=== PATIENT | female | born 1985 | race Two or more races ===

== ENCOUNTER 2020-04-25 14:34 | Outpatient (REF) | payer OTHER, SELFPAY ==
[2020-04-29 15:37] LABS: HPV mRNA E6/E7 rflx Not Detected (Not Detected)
== END 2020-04-25 14:35 | disposition home or self-care (01) ==
LOC: HO.LAB 14:34
PROVIDERS: PCP Internal Medicine; Visit Provider Advanced Practice Midwife
DX: Z01.419 Encounter for gynecological examination (general) (routine) without abnormal findings (principal); N87.0 Mild cervical dysplasia
CPT/HCPCS: 87624; 87625; 88142

== ENCOUNTER → 2020-06-10 11:25 | Outpatient (BNVA) | payer OTHER, SELFPAY | PROVIDERS: PCP Internal Medicine; Visit Provider Nurse Practitioner Family | DX: I95.1 Orthostatic hypotension (principal) | CPT/HCPCS: 99212 ==

== ENCOUNTER → 2021-03-18 12:07 | Outpatient (BNVA) | payer OTHER, SELFPAY | PROVIDERS: PCP Internal Medicine; Referring Provider Internal Medicine; Visit Provider Internal Medicine | DX: I95.0 Idiopathic hypotension (principal) | CPT/HCPCS: 93005; 99212 ==

== ENCOUNTER → 2021-04-29 13:29 | Outpatient (BNVA) | payer OTHER, SELFPAY | PROVIDERS: PCP Internal Medicine; Visit Provider Obstetrics & Gynecology | DX: N87.0 Mild cervical dysplasia (principal) ==

== ENCOUNTER 2021-08-25 10:34 | Emergency (ER) | payer OTHER, SELFPAY ==
[2021-08-25 11:56] VITALS: BP 123/76; PULSE 87; RESP 18; TEMP 36.7; O2SAT 100; BMI 29.2
[2021-08-25 12:57] LABS: MANUAL DIFF FLAG NO
[2021-08-25 12:59] LABS: Basophils Percent Auto 0.2 % (0-2); Eosinophils Percent Auto 0.4 % (0-4); Hematocrit 37.9 % (37.0-47.0); Hemoglobin 12.9 g/dl (12.0-16.0); Imm Gran Abs Auto 0.04 X10*3/uL (0.00-0.03); Imm Gran Pct Auto 0.8 % (0.0-0.4); Lymphocytes Absolute Auto 1.8 X10*3/uL (1.2-4.9); Lymphocytes Percent Auto 36.8 % (20-40); Mean Corpuscular Hemoglobin 29.6 pg (27.0-33.0); Mean Corpuscular Volume 86.9 fL (80.0-98.0); Mean Platelet Volume 8.4 fL (9.4-12.3); Monocytes Absolute Auto 0.6 X10*3/uL (0.1-1.2); Monocytes Percent Auto 12.1 % (2-11); Neutrophils Absolute Auto 2.4 x10*3/uL (2.0-8.3); Neutrophils Percent Auto 49.7 % (45-73); Platelet Count 256 X10*3/uL (160-400); Red Blood Count 4.36 X10*6/uL (4.20-5.50); Red Cell Distribution Width 12.1 % (11.0-16.0); White Blood Count 4.8 X10*3/uL (4.8-10.8)
[2021-08-25 13:17] LABS: Alanine Aminotransferase 16 U/L (0-31); Alkaline Phosphatase 53 U/L (39-117); Anion Gap 11 (12-20); Aspartate Amino Transferase 17 U/L (5-31); Bilirubin Total 0.4 mg/dL (0.0-1.0); Blood Urea Nitrogen 7 mg/dL (9-16); Carbon Dioxide 26 mmol/L (22-29); Chloride 103 mmol/L (96-108); Creatinine Clr Calc Pharmacy 111.2; Estimated Glomerular Filt Rate > 60; Glucose Random 97 mg/dL (60-115); Lipase 19 U/L (8-78); Potassium 3.4 mmol/L (3.3-5.1); Sodium 137 mmol/L (135-145); Total Protein 6.9 g/dL (6.5-8.0)
--- NOTE | 2021-08-25 14:27 | ED.NAVMDI ---
HPI - Nausea/Vomiting/Diarrhea General Chief complaint: Abdominal Pain Stated complaint: Abd pain/Diarrhea Time Seen by Provider: 08/25/21 14:27 Source: patient Mode of arrival: ambulatory Limitations: no limitations History of Present Illness HPI Narrative: Diarrhea for 3 days, followed by vomiting, started peptol bismuth on Wednesday now with black bowel movements. patient with some abdominal pain MD elicited complaint: nausea, vomiting and diarrhea Onset (ago): day(s) Description of vomiting: watery Description of diarrhea: watery and black tarry Associated nausea: Yes Associated abdominal pain: Yes Radiation: diffuse Quality: cramping Associated symptoms: fever/chills, nausea/vomiting and bloating Related Data Home Medications Medication Instructions Recorded Confirmed omeprazole 20 mg capsule,delayed 20 mg PO DAILY 04/25/20 03/18/21 release midodrine 2.5 mg tablet 2.5 mg PO .prn tab 03/18/21 Previous Rx's Medication Instructions Recorded meclizine 25 mg tablet 25 mg PO DAILY 90 Days #90 tab 07/25/20 sumatriptan succinate 25 mg tablet 25 mg PO DAILY PRN 30 Days #9 tab 10/09/20 cholecalciferol (vitamin D3) 50 50 mcg PO DAILY #30 cap 12/15/20 mcg (2,000 unit) capsule ondansetron 4 mg disintegrating 4 mg PO Q8H 4 Days #12 tab 08/25/21 tablet Allergies Allergy/AdvReac Type Severity Reaction Status Date / Time No Known Allergies Allergy Verified 08/25/21 12:01 Review of Systems Constitutional: Constitutional: Reports no additional constitutional complaints Eyes: Eyes: Reports no additional eye complaints ENT: Denies dizziness Cardiovascular: Cardiovascular: Reports no additional cardiovascular complaints Respiratory: Respiratory: Reports as per HPI Gastrointestinal: Gastrointestinal: Reports nausea Genitourinary: Genitourinary: Reports no additional female genitourinary complaints Musculoskeletal: Musculoskeletal: Reports no additional musculoskeletal complaints Integumentary/Breasts: Skin/Breast: Denies rash Neurologic: Reports system reviewed and no additional complaints, except as documented, Denies dizziness and Denies Sensory deficit (Neuro) Psychiatric: Psychiatric: Denies anxiety PMFSH Past Medical History Medical History Dizziness GERD (gastroesophageal reflux disease) Hypovitaminosis D Orthostatic hypotension Surgical History Hx of tubal ligation Family History Family History Mother Depression Diabetes mellitus HTN (hypertension) Asthma Anxiety FH: mental illness Social History Social History Alcohol intake: never Patient Tobacco Use Status: Never used Tobacco Advance Directives: No Advance Directives Information Provided: No Patient : No Gender identity: Female Physical Exam Vital Signs: Vital Signs: Last Vital Signs Temp 98.1 F 08/25/21 11:56 Pulse 87 08/25/21 11:56 Resp 18 08/25/21 11:56 BP 123/76 08/25/21 11:56 Pulse Ox 100 08/25/21 11:56 BMI result Body Mass Index 29.2 Const: General: healthy appearing Nutritional Appearance: average body habitus Orientation/consciousness: oriented to person and patient oriented x3 Limitations: no limitations HEENT: Head: Yes normal to inspection Ears: external ears normal General nose exam: Normal external nose present Mouth: Normal oral and palatal mucosa present and oropharynx normal Throat: Yes posterior oropharynx normal Eyes: General: appearance normal, both eyes and all related structures Neck: Other: supple Neck: Yes normal visual inspection Chest: Chest palpation & inspection: normal inspection of the chest Resp: Auscultation: clear to auscultation bilaterally Cardio: Jugular venous distension: no JVD Rate: regular rate Rhythm: regular rhythm Heart sounds: S1 normal heart sound present and S2 normal heart sound present GI: Inspection: Yes normal to inspection Palpation (GI): Soft to palpation, nontender and No hepatosplenomegaly present Auscultation: normal bowel sounds : General: Yes no CVA tenderness Back/Spine/Pelvis: Back: no CVA tenderness Skin: General skin exam: no rashes or lesions noted Neuro: General: oriented to person and patient oriented x3 Cranial nerves: Yes CN's II-XII intact bilaterally Motor exam (neuro): 5/5 motor strength present throughout Sensory Exam: No Sensory deficit (Neuro) Extrem: General: Yes normal to inspection Psych: Appearance: grossly normal Course Reevaluation(s) Reevaluation #1: patient with likely viral gastroenteritis will start zofran for nausea. Will place patient patient on fluids only and then advance to BRAT diet Time: 14:36 MDM - Nausea/Vomiting/Diarrhea Lab Data Result diagrams: 08/25/21 12:53 08/25/21 12:53 Labs: Lab Results 08/25/21 08/25/21 Range/Units 12:53 12:53 WBC 4.8 (4.8-10.8) X10*3/uL RBC 4.36 (4.20-5.50) X10*6/uL Hgb 12.9 (12.0-16.0) g/dl Hct 37.9 (37.0-47.0) % MCV 86.9 (80.0-98.0) fL MCH 29.6 (27.0-33.0) pg MCHC 34.0 (31.0-35.0) g/dl RDW 12.1 (11.0-16.0) % Plt Count 256 (160-400) X10*3/uL MPV 8.4 L (9.4-12.3) fL Immature Gran % (Auto) 0.8 H (0.0-0.4) % Neut % (Auto) 49.7 (45-73) % Lymph % (Auto) 36.8 (20-40) % [place] % (Auto) 12.1 H (2-11) % Eos % (Auto) 0.4 (0-4) % Baso % (Auto) 0.2 (0-2) % Lymph # (Auto) 1.8 (1.2-4.9) X10*3/uL [place] # (Auto) 0.6 (0.1-1.2) X10*3/uL Eos # (Auto) 0.0 (0.0-0.4) X10*3/uL Baso # (Auto) 0.0 (0.0-0.2) X10*3/uL Abs Immat Gran (auto) 0.04 H (0.00-0.03) X10*3/uL Absolute Neuts (auto) 2.4 (2.0-8.3) x10*3/uL Absolute Nucleated RBC 0.000 (0.0-0.012) X10*3/uL Nucleated RBC % (auto) 0.0 (0.0-0.2) /100WBC Sodium 137 (135-145) mmol/L Potassium 3.4 (3.3-5.1) mmol/L Chloride 103 (96-108) mmol/L Carbon Dioxide 26 (22-29) mmol/L Anion Gap 11 L (12-20) BUN 7 L (9-16) mg/dL Creatinine 0.73 (0.5-1.4) mg/dL Estim Creat Clear Calc 111.2 Estimated GFR > 60 Random Glucose 97 (60-115) mg/dL Calcium 9.0 (8.4-10.2) mg/dL Total Bilirubin 0.4 (0.0-1.0) mg/dL AST 17 (5-31) U/L ALT 16 (0-31) U/L Alkaline Phosphatase 53 (39-117) U/L Total Protein 6.9 (6.5-8.0) g/dL Albumin 4.0 (3.5-5.0) g/dL Lipase 19 (8-78) U/L Discharge Plan Discharge Clinical Impression: Gastroenteritis Patient Disposition: Home, Self-Care Instructions: Acute Nausea and Vomiting (ED), Acute Diarrhea (ED) Prescriptions: New ondansetron 4 mg tablet,disintegrating 4 mg PO Q8H 4 Days Qty: 12 0RF No Action meclizine 25 mg tablet 25 mg PO DAILY 90 Days Qty: 90 1RF sumatriptan succinate 25 mg tablet 25 mg PO DAILY PRN (Reason: migraine headache) 30 Days Qty: 9 3RF cholecalciferol (vitamin D3) 50 mcg (2,000 unit) capsule 50 mcg PO DAILY Qty: 30 11RF omeprazole 20 mg capsule,delayed release(DR/EC) 20 mg PO DAILY 0RF midodrine 2.5 mg tablet 2.5 mg PO .prn 0RF Referrals: Po,Addie Nova MD [Primary Care Provider] - 1 week
[2021-08-25] MEDS: Ondansetron ODT 4 MG TAB.RAPDIS TRANSLINGU (14:45)
== END 2021-08-25 14:48 | disposition home or self-care (01) ==
PROVIDERS: Emergency Provider Emergency Medicine; PCP Internal Medicine
DX: K52.9 Noninfective gastroenteritis and colitis, unspecified (principal); R11.2 Nausea with vomiting, unspecified
CPT/HCPCS: 36415; 80053; 83690; 85025; 99283

== ENCOUNTER 2021-12-09 07:02 | Emergency (ER) | payer OTHER, SELFPAY ==
--- NOTE | ~2021-12-09 | CT_ITS ---
EXAMINATION: CT ABDOMEN AND PELVIS WITHOUT CONTRAST CLINICAL INFORMATION: Left flank pain. Dysuria. COMPARISON: Abdomen ultrasound from 04/18/2019. TECHNIQUE: Multidetector volumetric imaging was performed from the superior aspect of the liver through the pubic symphysis. Sagittal and coronal reformatted images were obtained on the technologist's workstation. This CT examination was performed using dose optimization techniques as appropriate, variously including the following: *Automated exposure control *Adjustment of mA and/or kV according to patient size (this includes techniques or standardized protocols for targeted exams where dose is matched to indication/reason for exam; i.e. extremities or head) *Use of iterative reconstruction technique DLP: 639 mGy-cm FINDINGS: LUNG BASES: Normal. No pulmonary consolidation or pleural effusion at either lung base. LIVER: The liver has normal size, shape, and attenuation. No evidence of liver mass. GALLBLADDER AND BILIARY TREE: Gallbladder is without radiopaque stones, wall thickening or pericholecystic fluid. No dilated bile ducts. PANCREAS: Normal. No edema, pancreatic ductal dilatation or mass. SPLEEN: Normal. ADRENAL GLANDS: Normal. KIDNEYS AND URETERS: The kidneys have normal size and cortical thickness. No perinephric fluid collection. No urolithiasis or hydroureteronephrosis. Several phleboliths are observed within the lower pelvis. There are no distal ureteral stones. BLADDER: Normal. No calculi or wall thickening. BOWEL AND PERITONEUM: Stomach is unremarkable. No dilated loops of bowel. The appendix is normal. No overt bowel wall thickening or mesenteric fat stranding. No ascites or pneumoperitoneum. ABDOMINAL WALL: Unremarkable. VASCULATURE: Unremarkable. LYMPH NODES: No pathologic sized lymph nodes in the abdomen or pelvis. No inguinal lymphadenopathy. PELVIC VISCERA: The uterus is retroflexed. No evidence of uterine or adnexal mass. SKELETAL: The visualized lower thoracic and lumbar vertebra have normal height and alignment. No suspicious bone lesions. CT/CT abdomen pelvis wo con IMPRESSION: No acute imaging abnormalities in the abdomen or pelvis. No specific source of pain is identified. No evidence of renal calculi, hydronephrosis or perinephric edema.
[2021-12-09 07:17] VITALS: BP 123/78; PULSE 82; RESP 18; TEMP 36.6; O2SAT 98; BMI 30.5
[2021-12-09 07:34] LABS: Appearance Urine CLOUDY; Color Urine YELLOW; Glucose Urine UA NEG (NEG); Leukocyte Esterase Urine 3+ (NEG); Nitrite Urine NEG (NEG); PH 5.5 (5.0-8.0); Specific Gravity - Urine 1.025 (1.005-1.025); UACC Culture Trigger YES; Urine Blood 2+ (NEG); Urine Ketones NEG (NEG); Urine Protein 1+ MG/DL (NEG-TRACE)
[2021-12-09 07:36] LABS: UPreg QC Valid YES; Urine Pregnancy NEGATIVE (NEGATIVE)
[2021-12-09 07:44] LABS: Bacteria Urine 1+ /LPF; Squamous Epithelial Cell Urine TRACE /LPF; WBC Urine TNTC /HPF (0-4)
--- NOTE | 2021-12-09 09:28 | ED.ABDPAIN ---
HPI - Abdominal Pain General Chief Complaint: Back Pain/Injury Stated Complaint: lower back pain Time Seen by Provider: 12/09/21 09:11 Source: patient Mode of arrival: ambulatory Limitations: language barrier ( Norwegian-speaking) History of Present Illness HPI narrative: 36-year-old female with no significant past medical history presenting to the ED with complaints of 10 days of left flank pain radiating to suprapubic area that has been constant with associated dysuria / urinary frequency / urgency. Reports she has been taking [id number] medication no symptomatic relief. She also reports that she bought [id number]-[id number] penicillin antibiotics from a store also no symptomatic relief. She denies any fevers, chills, dizziness, headaches, neck pain/ stiffness, trouble swallowing or breathing, chest pain or shortness of breath, nausea vomiting, constipation or diarrhea, abnormal vaginal discharge, thoughts of STDs, hematuria, rashes or lesions, or any other symptoms complaints or concerns at this time. MD elicited complaint: abdominal pain and flank pain Pertinent past history: none Onset (ago): day(s) (10) Pain Consistency: constant Location: L flank and suprapubic Severity: moderate Quality: aching Radiation: suprapubic Exacerbating factors: nothing Relieving factors: other ( Urination) Associated symptoms: dysuria Treatments prior to arrival: other ( see above) Related Data Home Medications Medication Instructions Recorded Confirmed omeprazole 20 mg capsule,delayed 20 mg PO DAILY 04/25/20 03/18/21 release midodrine 2.5 mg tablet 2.5 mg PO .prn 03/18/21 Previous Rx's Medication Instructions Recorded meclizine 25 mg tablet 25 mg PO DAILY 90 days #90 tabs 07/25/20 sumatriptan succinate 25 mg tablet 25 mg PO DAILY PRN migraine 10/09/20 headache 30 days #9 tabs cholecalciferol (vitamin D3) 50 50 mcg PO DAILY #30 caps 12/15/20 mcg (2,000 unit) capsule ondansetron 4 mg disintegrating 4 mg PO Q8H 4 days #12 tabs 08/25/21 tablet ciprofloxacin HCl 500 mg tablet 500 mg PO BID pyelonephritis 7 12/09/21 (Cipro) days #14 tabs ketorolac 10 mg tablet 10 mg PO Q8H PRN pain #14 tabs 07/19/22 phenazopyridine 100 mg tablet 100 mg PO TID PRN pain 6 doses #6 12/09/21 (Pyridium) tabs Allergies Allergy/AdvReac Type Severity Reaction Status Date / Time No Known Allergies Allergy Verified 08/25/21 12:01 Review of Systems Review of Systems Constitutional : No Weight loss, No Fever, No Chills, No Night Sweats, No Fatigue, No Malaise ENT/Mouth : No Hearing loss, No Ear Pain, No Nasal Congestion, No Sinus Pain, No Hoarseness, No sore throat, No Rhinorrhea, No Swallowing Difficulty Eyes: No Eye Pain, No Swelling, No Redness, No Foreign Body, No Discharge, No Vision Changes Cardiovascular : No Chest Pain, No SOB, No Dyspnea on Exertion, No Orthopnea, No Edema, No Palpitations Respiratory : No Cough, No Sputum, No Wheezing, No Smoke Exposure, No Dyspnea Gastrointestinal : No Nausea, No Vomiting, No Diarrhea, No Constipation, + abdominal Pain, No Hematochezia, No Melena Genitourinary : no irregular bleeding, + Dysuria, + Urinary Frequency, No Hematuria, No Urinary Incontinence, + Urgency, + Flank Pain, No Urinary Flow Changes, No Hesitancy Musculoskeletal : No joint pain, No Myalgias, No Joint Swelling Skin : No Skin Lesions, No rash Neuro : No Weakness, No Numbness, No Paresthesias, No Loss of Consciousness, No Dizziness, No Headache Psych : No Anxiety/Panic, No Depression, No SI/HI/AH/VH, No Social Issues, Heme/Lymph: No Bruising, No Bleeding,No Lymphadenopathy Endocrine : No Polyuria, No Polydipsia, No Temperature Intolerance Yes all other systems are reviewed and are negative [facility] Past Medical History Attestation statement: The following information was validated with the patient. Source: old records reviewed and nursing notes reviewed Medical History Dizziness GERD (gastroesophageal reflux disease) Hypovitaminosis D Orthostatic hypotension Surgical History Hx of tubal ligation Family History Family History Mother Depression Diabetes mellitus HTN (hypertension) Asthma Anxiety FH: mental illness Social History Social History Alcohol intake: never Patient Tobacco Use Status: Never used Tobacco Advance Directives: No Advance Directives Information Provided: Yes Gender identity: Female Physical Exam ED Vital Signs: Vital Signs - 24 hr 12/09/21 07:17 Temperature 97.8 F Pulse Rate 82 Respiratory Rate 18 Blood Pressure 123/78 Pulse Oximetry 98 Oxygen Delivery Method Room Air BMI result Body Mass Index 30.5 vital signs have been reviewed as normal and appeared to be correct. Blood pressure normal. Heart rate normal. Respiration rate normal. Temperature normal. Oxygen saturation normal. Appearance: Alert. Oriented X3. No acute distress. Head: Normal external exam. Normocephalic. Atraumatic. Eyes: PERRLA. EOMI. Conjunctiva and sclera normal. Eyelids normal. ENT: Pharynx normal. Uvula midline. Moist mucous membranes. No lesions/ulcerations or masses noted on the tongue. Normal voice. No trismus noted. No drooling noted. No muffled voice noted. Neck: Normal inspection. Neck supple. FROM. No adenopathy. Thyroid Normal. No meningeal signs. CVS: Normal heart rate and rhythm. Heart sound normal. Pulses normal throughout. No murmurs/rales/gallops. Respiratory: No respiratory distress. Painless inspiration. Breath sounds normal. No wheezes/rales/rhonchi noted. Chest nontender. No crepitus is noted. No accessory muscle usage noted or decreased air movement noted. No signs of trauma. Abdomen: Soft and nontender. Bowel sounds normal in all 4 quadrants. No distention noted. No organomegaly noted. No visible injury noted. Back: + Left CVA tenderness. No R CVAT noted. Full range of motion noted. Nontender. No signs of trauma. Patient neuro intact bilaterally and distally on all 4 extremities. Patient's reflexes intact bilaterally and distally on all 4 extremities. No rashes/lesion/induration/fluctuance or signs of infection noted. Skin: Skin warm and dry. Normal skin color. Normal skin turgor. No rashes/lesions/lacerations noted. Extremities: Extremities exhibit normal range of motion and nontender. Neuro: Oriented X 3. No motor deficit. No sensory deficit. Reflexes normal. Normal steady gait. No focal neuro deficits noted. CN's II-XII intact bilaterally? Vascular: + radial pulses/+ 2 distal pedal pulses/+2 dorsalis pedis b/l. Normal cap refill. No cyanosis noted to upper extremity nails and lower extremity toes nails. Course Course Course Narrative: 9:15am - 36-year-old female with no significant past medical history presenting to the ED with complaints of 10 days of left flank pain radiating to suprapubic area that has been constant with associated dysuria / urinary frequency / urgency. Reports she has been taking etuw-ocp-nydiony medication no symptomatic relief. She also reports that she bought cmwi-bgi-gmibcmy penicillin antibiotics from a store also no symptomatic relief. patient had a urine while she was in the waiting room which revealed +1 protein. Plus two blood. +Leukocytes negative for . Negative nitrates. Although this is consistent with UTI. Plan: Due to patient having CVA tenderness and suprapubic abdominal pain will obtain a CT scan abdomen pelvis with IV contrast to evaluate for possible kidney stone versus pyelo, obtain basic labs and provide IM Toradol and re-evaluate. Reevaluation(s) Reevaluation #1: - Labs return patient with an elevated white blood cell count [id number]. Otherwise all other labs are within normal limits. Patient negative for . UA positive for UTI negative for nitrates. CT scan abdomen pelvis without IV contrast negative for any acute processes. Patient most likely pyelonephritis will DC home with antibiotics and symptomatic treatment instructions return if any new or worsening symptoms follow up with primary care provider. Patient understands agrees with this plan. Time: 10:52 MDM - Abdominal Pain Medical Records Attestation: I reviewed the patient's medical records. Lab Data Attestation: I reviewed the patient's lab results. Result diagrams: 12/09/21 09:41 12/09/21 09:41 Labs: Lab Results 12/09/21 12/09/21 12/09/21 Range/Units 07:24 07:24 09:41 WBC 11.7 H (4.8-10.8) X10*3/uL RBC 4.72 (4.20-5.50) X10*6/uL Hgb 13.8 (12.0-16.0) g/dl Hct 41.5 (37.0-47.0) % MCV 87.9 (80.0-98.0) fL MCH 29.2 (27.0-33.0) pg MCHC 33.3 (31.0-35.0) g/dl RDW 13.1 (11.0-16.0) % Plt Count 363 D (160-400) X10*3/uL MPV 8.4 L (9.4-12.3) fL Immature Gran % (Auto) 1.5 H (0.0-0.4) % Neut % (Auto) 71.5 (45-73) % Lymph % (Auto) 20.5 (20-40) % [place] % (Auto) 5.6 (2-11) % Eos % (Auto) 0.6 (0-4) % Baso % (Auto) 0.3 (0-2) % Lymph # (Auto) 2.4 (1.2-4.9) X10*3/uL [place] # (Auto) 0.7 (0.1-1.2) X10*3/uL Eos # (Auto) 0.1 (0.0-0.4) X10*3/uL Baso # (Auto) 0.0 (0.0-0.2) X10*3/uL Abs Immat Gran (auto) 0.17 H (0.00-0.03) X10*3/uL Absolute Neuts (auto) 8.4 H (2.0-8.3) x10*3/uL Absolute Nucleated RBC 0.000 (0.0-0.012) X10*3/uL Nucleated RBC % (auto) 0.0 (0.0-0.2) /100WBC Sodium (135-145) mmol/L Potassium (3.3-5.1) mmol/L Chloride (96-108) mmol/L Carbon Dioxide (22-29) mmol/L Anion Gap (12-20) BUN (9-16) mg/dL Creatinine (0.5-1.4) mg/dL Estim Creat Clear Calc Estimated GFR Random Glucose (60-115) mg/dL Calcium (8.4-10.2) mg/dL Magnesium (1.6-2.6) mg/dL Total Bilirubin (0.0-1.0) mg/dL AST (5-31) U/L ALT (0-31) U/L Alkaline Phosphatase (39-117) U/L Total Protein (6.5-8.0) g/dL Albumin (3.5-5.0) g/dL Urine Color YELLOW Urine Appearance CLOUDY Urine pH 5.5 (5.0-8.0) Ur Specific [place] 1.025 (1.005-1.025) Urine Protein 1+ H (NEG-TRACE) MG/DL Urine Glucose (UA) NEG (NEG) MG/DL Urine Ketones NEG (NEG) MG/DL Urine Blood 2+ H (NEG) Urine Nitrite NEG (NEG) Ur Leukocyte Esterase 3+ H (NEG) Urine RBC 5-9 H (0) /HPF Urine WBC TNTC H (0-4) /HPF Ur Squamous Epith Cells TRACE /LPF Urine Bacteria 1+ /LPF Urine Test NEGATIVE (NEGATIVE) 12/09/21 Range/Units 09:41 WBC (4.8-10.8) X10*3/uL RBC (4.20-5.50) X10*6/uL Hgb (12.0-16.0) g/dl Hct (37.0-47.0) % MCV (80.0-98.0) fL MCH (27.0-33.0) pg MCHC (31.0-35.0) g/dl RDW (11.0-16.0) % Plt Count (160-400) X10*3/uL MPV (9.4-12.3) fL Immature Gran % (Auto) (0.0-0.4) % Neut % (Auto) (45-73) % Lymph % (Auto) (20-40) % [place] % (Auto) (2-11) % Eos % (Auto) (0-4) % Baso % (Auto) (0-2) % Lymph # (Auto) (1.2-4.9) X10*3/uL [place] # (Auto) (0.1-1.2) X10*3/uL Eos # (Auto) (0.0-0.4) X10*3/uL Baso # (Auto) (0.0-0.2) X10*3/uL Abs Immat Gran (auto) (0.00-0.03) X10*3/uL Absolute Neuts (auto) (2.0-8.3) x10*3/uL Absolute Nucleated RBC (0.0-0.012) X10*3/uL Nucleated RBC % (auto) (0.0-0.2) /100WBC Sodium 136 (135-145) mmol/L Potassium 4.3 D (3.3-5.1) mmol/L Chloride 104 (96-108) mmol/L Carbon Dioxide 26 (22-29) mmol/L Anion Gap 10 L (12-20) BUN 12 D (9-16) mg/dL Creatinine 0.90 (0.5-1.4) mg/dL Estim Creat Clear Calc 88.8 Estimated GFR > 60 Random Glucose 87 (60-115) mg/dL Calcium 9.3 (8.4-10.2) mg/dL Magnesium 2.1 (1.6-2.6) mg/dL Total Bilirubin 0.3 (0.0-1.0) mg/dL AST 16 (5-31) U/L ALT 19 (0-31) U/L Alkaline Phosphatase 57 (39-117) U/L Total Protein 7.5 (6.5-8.0) g/dL Albumin 4.3 (3.5-5.0) g/dL Urine Color Urine Appearance Urine pH (5.0-8.0) Ur Specific [place] (1.005-1.025) Urine Protein (NEG-TRACE) MG/DL Urine Glucose (UA) (NEG) MG/DL Urine Ketones (NEG) MG/DL Urine Blood (NEG) Urine Nitrite (NEG) Ur Leukocyte Esterase (NEG) Urine RBC (0) /HPF Urine WBC (0-4) /HPF Ur Squamous Epith Cells /LPF Urine Bacteria /LPF Urine Test (NEGATIVE) Imaging Data CT scan abdomen pelvis without IV contrast due to shortage of contrast: Attestation: I personally reviewed and interpreted this imaging study as follows: Radiologist's impression: FINDINGS: LUNG BASES: Normal. No pulmonary consolidation or pleural effusion at either lung base.? LIVER: The liver has normal size, shape, and attenuation.? No evidence of liver mass. GALLBLADDER AND BILIARY TREE: Gallbladder is without radiopaque stones, wall thickening or pericholecystic fluid.? No dilated bile ducts. PANCREAS: Normal. No edema, pancreatic ductal dilatation or mass.? SPLEEN: Normal.? ADRENAL GLANDS: Normal.? KIDNEYS AND URETERS: The kidneys have normal size and cortical thickness. No perinephric fluid collection. No urolithiasis or hydroureteronephrosis. Several phleboliths are observed within the lower pelvis. There are no distal ureteral stones. BLADDER:? Normal. No calculi or wall thickening. BOWEL AND PERITONEUM: Stomach is unremarkable. No dilated loops of bowel. The appendix is normal. No overt bowel wall thickening or mesenteric fat stranding. No ascites or pneumoperitoneum. ABDOMINAL WALL: Unremarkable.? VASCULATURE: Unremarkable. LYMPH NODES: No pathologic sized lymph nodes in the abdomen or pelvis. No inguinal lymphadenopathy. PELVIC VISCERA: The uterus is retroflexed. No evidence of uterine or adnexal mass. SKELETAL: The visualized lower thoracic and lumbar vertebra have normal height and alignment. No suspicious bone lesions.? CT/CT abdomen pelvis wo con IMPRESSION: No acute imaging abnormalities in the abdomen or pelvis. No specific source of pain is identified. No evidence of renal calculi, hydronephrosis or perinephric edema. ? Discharge Plan Discharge Clinical Impression: Pyelonephritis Patient Disposition: Home, Self-Care Instructions: Kidney Infection (ED) Prescriptions: New ketorolac 10 mg tablet 10 mg PO Q8H PRN (Reason: pain) Qty: 14 0RF Rx Instructions: 1st dose given in the ED by IM patient tolerated well ciprofloxacin HCl [Cipro] 500 mg tablet 500 mg PO BID 7 Days Qty: 14 0RF phenazopyridine [Pyridium] 100 mg tablet 100 mg PO TID PRN (Reason: pain) Qty: 6 0RF No Action meclizine 25 mg tablet 25 mg PO DAILY 90 Days Qty: 90 1RF sumatriptan succinate 25 mg tablet 25 mg PO DAILY PRN (Reason: migraine headache) 30 Days Qty: 9 3RF cholecalciferol (vitamin D3) 50 mcg (2,000 unit) capsule 50 mcg PO DAILY Qty: 30 11RF ondansetron 4 mg tablet,disintegrating 4 mg PO Q8H 4 Days Qty: 12 0RF omeprazole 20 mg capsule,delayed release(DR/EC) 20 mg PO DAILY midodrine 2.5 mg tablet 2.5 mg PO .prn Referrals: Madisyn Carson MD [Primary Care Provider] - 2 days Stand Alone Forms: Work/School Release Print Language: Norwegian
[2021-12-09] MEDS: Ketorolac Tromethamine 60 MG/2 ML VIAL IM (09:36)
[2021-12-09 09:44] LABS: MANUAL DIFF FLAG NO
[2021-12-09 09:52] LABS: Basophils Percent Auto 0.3 % (0-2); Eosinophils Absolute Auto 0.1 X10*3/uL (0.0-0.4); Eosinophils Percent Auto 0.6 % (0-4); Hematocrit 41.5 % (37.0-47.0); Hemoglobin 13.8 g/dl (12.0-16.0); Imm Gran Abs Auto 0.17 X10*3/uL (0.00-0.03); Imm Gran Pct Auto 1.5 % (0.0-0.4); Lymphocytes Absolute Auto 2.4 X10*3/uL (1.2-4.9); Lymphocytes Percent Auto 20.5 % (20-40); Mean Corpuscular HGB Conc 33.3 g/dl (31.0-35.0); Mean Corpuscular Hemoglobin 29.2 pg (27.0-33.0); Mean Corpuscular Volume 87.9 fL (80.0-98.0); Mean Platelet Volume 8.4 fL (9.4-12.3); Monocytes Absolute Auto 0.7 X10*3/uL (0.1-1.2); Monocytes Percent Auto 5.6 % (2-11); Neutrophils Absolute Auto 8.4 x10*3/uL (2.0-8.3); Neutrophils Percent Auto 71.5 % (45-73); Platelet Count 363 X10*3/uL (160-400); Red Blood Count 4.72 X10*6/uL (4.20-5.50); Red Cell Distribution Width 13.1 % (11.0-16.0); White Blood Count 11.7 X10*3/uL (4.8-10.8)
[2021-12-09 10:03] LABS: Alanine Aminotransferase 19 U/L (0-31); Albumin Level 4.3 g/dL (3.5-5.0); Alkaline Phosphatase 57 U/L (39-117); Anion Gap 10 (12-20); Aspartate Amino Transferase 16 U/L (5-31); Bilirubin Total 0.3 mg/dL (0.0-1.0); Blood Urea Nitrogen 12 mg/dL (9-16); Calcium 9.3 mg/dL (8.4-10.2); Carbon Dioxide 26 mmol/L (22-29); Chloride 104 mmol/L (96-108); Creatinine Clr Calc Pharmacy 88.8; Estimated Glomerular Filt Rate > 60; Glucose Random 87 mg/dL (60-115); Magnesium 2.1 mg/dL (1.6-2.6); Potassium 4.3 mmol/L (3.3-5.1); Sodium 136 mmol/L (135-145); Total Protein 7.5 g/dL (6.5-8.0)
[2021-12-09 10:56] VITALS: RESP 18
== END 2021-12-09 10:58 | disposition home or self-care (01) ==
PROVIDERS: Physician Assistant Medical; Emergency Provider Emergency Medicine; PCP Internal Medicine
DX: N12 Tubulo-interstitial nephritis, not specified as acute or chronic (principal); B96.20 Unspecified Escherichia coli [E. coli] as the cause of diseases classified elsewhere; R10.9 Unspecified abdominal pain; I87.8 Other specified disorders of veins
CPT/HCPCS: 36415; 74176; 80053; 81001; 81025; 83735; 85025; 87086; 87088; 87186; 96372; 99284; J1885

== ENCOUNTER 2022-01-05 12:53 | Outpatient (REF) | payer OTHER, SELFPAY ==
[2022-01-05 15:11] LABS: Syphilis Screen Nonreactive (Nonreactive)
[2022-01-05 20:29] LABS: CT PCR NOT DETECTED (Not Detect.); NG PCR NOT DETECTED (Not Detect.)
[2022-01-06 04:10] LABS: HIV AB/AG Nonreactive (Nonreactive); HIV Num 1 0.07 S/CO (0.00-0.99); Hepatitis B Surface Antigen Negative (Negative); ~Hepatitis C Antibody Nonreactive (Nonreactive)
[2022-01-06 13:38] LABS: BV Int Neg Control Negative (Negative); BV Int Pos Control Positive (Positive)
== END 2022-01-05 12:54 | disposition home or self-care (01) ==
LOC: HO.LAB 12:53
PROVIDERS: PCP Internal Medicine; Visit Provider Obstetrics & Gynecology
DX: N76.0 Acute vaginitis (principal); Z11.3 Encounter for screening for infections with a predominantly sexual mode of transmission
CPT/HCPCS: 36415; 86780; 86803; 87340; 87389; 87480; 87491; 87510; 87591; 87660; 99212

== ENCOUNTER 2022-06-11 10:12 | Outpatient (REF) | payer OTHER, SELFPAY ==
[2022-06-13 03:18] LABS: HPV mRNA E6/E7 rflx Not Detected (Not Detected)
== END 2022-06-11 10:13 | disposition home or self-care (01) ==
LOC: HO.LNP 10:12
PROVIDERS: PCP Internal Medicine; Visit Provider Obstetrics & Gynecology
DX: Z01.419 Encounter for gynecological examination (general) (routine) without abnormal findings (principal); Z11.51 Encounter for screening for human papillomavirus (HPV)
CPT/HCPCS: 87624; 88142

== ENCOUNTER 2023-06-17 09:10 | Outpatient (REF) | payer OTHER, SELFPAY ==
[2023-06-17 11:42] LABS: Syphilis Screen Nonreactive (Nonreactive)
[2023-06-17 11:43] LABS: HBsAGNum1 0.26 S/CO (0.00-0.99); HIV AB/AG Nonreactive (Nonreactive); HIV Num 1 0.05 S/CO (0.00-0.99); Hepatitis B Surface Antigen Negative (Negative); ~HepC Num1 15.64 S/CO (0.00-0.79); ~Hepatitis C Antibody Reactive (Nonreactive)
[2023-06-17 13:43] LABS: CT PCR NOT DETECTED (Not Detect.); NG PCR NOT DETECTED (Not Detect.)
[2023-06-18 09:25] LABS: BV Int Neg Control Negative (Negative); BV Int Pos Control Positive (Positive)
== END 2023-06-17 09:11 | disposition home or self-care (01) ==
LOC: HO.LAB 09:10
PROVIDERS: Visit Provider Obstetrics & Gynecology
DX: Z01.419 Encounter for gynecological examination (general) (routine) without abnormal findings (principal); N76.0 Acute vaginitis; B96.89 Other specified bacterial agents as the cause of diseases classified elsewhere
CPT/HCPCS: 0353U; 36415; 86780; 86803; 87340; 87389; 87480; 87510; 87660; 99395

== ENCOUNTER 2023-06-17 09:10 | Outpatient (AMB) | payer OTHER, SELFPAY ==
--- NOTE | 2023-06-17 09:16 | A.OFFVIS_ITS ---
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 bv Wind Turbine Electrical Engineer Required: Yes Wind Turbine Electrical Engineer Language: Correspondence School Instructor Name: Neelima CHAPPELL Information Interpreted: non-clinical & clinical Accompanied by: Self / Same As Patient Allergies No Known Allergies Allergy (Verified 06/17/23 09:22) Is last menstrual period known: Yes Last menstrual period: 06/08/23 HPI HPI Comments History of Present Illness Details Presenting for annual exam. Complaining of vaginal discharge with foul smell and no vulvovaginal itching Last Pap/HPV was negative in 06/15 [facility] Medical History (Updated 06/17/23 @ 09:33 by Sarmad Adams MD) Orthostatic hypotension LAKIA I (cervical intraepithelial neoplasia I) GERD (gastroesophageal reflux disease) Hypovitaminosis D Dizziness Surgical History Hx of tubal ligation Family History Mother Depression Diabetes mellitus HTN (hypertension) Asthma Anxiety FH: mental illness Social History Household Members: Family Housing: Apartment Alcohol intake: never Patient Tobacco Use Status: Never used Tobacco Current occupational status: employed 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 Sexually active: Yes Sexual orientation: Straight/Heterosexual Gender identity: Female Female Reproductive History Menstrual Age of Menarche: 16 Duration of menses: 6-7 days Date of last menstrual period: 06/08/23 control method: permanent sterilization Total pregnancies: 2 Full term: 2 Number of Living Children: 2 Date of last pap smear: 06/11/22 Review of Systems Const All systems reviewed & are unremarkable except as noted in HPI and below Card Reports as per HPI Resp Reports as per HPI GI Reports as per HPI and Reports no additional complaints Reports as per HPI Physical Exam Vital Signs: Last Vital Signs BP 122/74 06/17/23 09:21 BMI result Body Mass Index 31.9 Const General: cooperative, healthy appearing and comfortable Chest Chest palpation & inspection: normal inspection of the chest and normal palpation of entire chest wall Breast/axilla inspection: normal inspection of the breasts and normal inspection of the axillae Breast/axilla palpation: normal palpation of the breasts, normal palpation of the axillae and no axillary lymphadenopathy Resp Effort & Inspection: normal respiratory effort Auscultation: clear to auscultation bilaterally Percussion: percussion normal Cardio Palpation: normal PMI Rate: regular rate Rhythm: regular rhythm Heart sounds: no murmurs and no rubs Peripheral pulses: Peripheral pulses 2+ throughout GI Inspection: Yes normal to inspection Palpation (GI): Soft to palpation, nontender, no guarding, not rigid and No hepatosplenomegaly present Percussion: Yes normal to percussion Auscultation: normal bowel sounds Rectal Exam - Female: deferred General: Yes bladder normal to palpation External Female Exam: No lesion Speculum Exam - Vagina: normal appearance of the vagina, normal palpation, normal vaginal discharge and not erythematous Speculum Exam - Cervix: normal appearance of the cervix and normal palpation Bimanual exam- vagina & uterus: normal bimanual exam, normal palpation, uterine size normal, bladder normal to palpation, consistency normal and normal palpation Bimanual Exam- Adnexa, other: normal adnexae, no masses and no tenderness Assessment & Plan Assessment & Plan (1) Well woman exam: Code(s): Z01.419 - Encounter for gynecological examination (general) (routine) without abnormal findings Plan: Cotesting not indicated this year. Counseled the patient about the recommended dietary allowance of 1000 mg of Calcium & 600 IU of vitamin D. The patient was instructed to perform monthly self-breast exams and to schedule an annual exam in a year; All questions answered and the patient verbalized understanding. Instructed the patient to schedule annual exam in a year (2) Bacterial vaginosis: Code(s): N76.0 - Acute vaginitis; B96.89 - Other specified bacterial agents as the cause of diseases classified elsewhere Plan: GC and chlamydia cultures with BV panel taken. Per CDC recommendation, will screen for STI, HepBs Ag, HIV, RPR, Hep C Ab ordered. Will treat with Flagyl 500 mg p.o. b.i.d. x 7 days, Instructions given to the patient to refrain from sexual activity or to use condoms consistently and correctly during the BV treatment regimen, not to douch, it might increase the risk for relapse, and to call if symptoms persist or recur. Orders: Orders Hepatitis C Antibody Today B96.89 - Other specified bacterial agents as the cause of diseases classified elsewhere, N76.0 - Acute vaginitis Syphilis Screen Today B96.89 - Other specified bacterial agents as the cause of diseases classified elsewhere, N76.0 - Acute vaginitis Hepatitis B Surface Antigen Today B96.89 - Other specified bacterial agents as the cause of diseases classified elsewhere, N76.0 - Acute vaginitis HIV Ab/Ag Today B96.89 - Other specified bacterial agents as the cause of diseases classified elsewhere, N76.0 - Acute vaginitis Medications: New metronidazole 500 mg PO BID 14 tabs 0RF 7 days Coding Level of Care Code Est Pt Prev Care 18-39y(41202) Diagnoses Well woman exam Z01.419 Bacterial vaginosis N76.0; B96.89
[2023-06-17 09:21] VITALS: BP 122/74; BMI 31.9
== END 2023-06-17 09:38 | disposition home or self-care (01) ==
PROVIDERS: Visit Provider Obstetrics & Gynecology
DX: Z01.419 Encounter for gynecological examination (general) (routine) without abnormal findings (principal); N76.0 Acute vaginitis; B96.89 Other specified bacterial agents as the cause of diseases classified elsewhere
CPT/HCPCS: 99395

== ENCOUNTER 2023-06-17 09:47 | Outpatient (REF) | payer OTHER, SELFPAY | END 2023-06-17 09:48 | disposition home or self-care (01) | LOC: HO.LNP 09:47 | PROVIDERS: Visit Provider Obstetrics & Gynecology | DX: Z13.89 Encounter for screening for other disorder (principal) ==

== ENCOUNTER 2023-07-01 08:20 | Outpatient (REF) | payer OTHER, SELFPAY ==
[2023-07-02 15:28] LABS: HCV RNA PCR Qn <1.18 NOT DETECTED Log IU/mL (NOT DETECTED); HCV RNA PCR Qn <15 NOT DETECTED IU/mL (NOT DETECTED)
== END 2023-07-01 08:21 | disposition home or self-care (01) ==
LOC: HO.LAB 08:20
PROVIDERS: PCP Internal Medicine; Visit Provider Obstetrics & Gynecology
DX: R76.8 Other specified abnormal immunological findings in serum (principal)
CPT/HCPCS: 36415; 87522

== ENCOUNTER 2023-07-05 10:29 | Outpatient (AMB) | payer OTHER, SELFPAY ==
[2023-07-05 10:41] VITALS: BP 110/72; BMI 31.9
--- NOTE | 2023-07-05 10:41 | MHC.OFFVIS ---
Intake Vital Signs 07/05/23 10:41 Height 5 ft 5 in Weight 192 lb BMI 31.9 BP 110/72 Intake Visit Reasons: lab results Acute Dialysis Registered Nurse Required: Yes Acute Dialysis Registered Nurse Language: Bag Sewer Name: [id number] Information Interpreted: non-clinical & clinical Allergies No Known Allergies Allergy (Verified 06/17/23 09:22) HPI HPI Comments History of Present Illness Details The patient is presenting to discuss the results of her serology hepatitis-C antibody positive. 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 Sexual orientation: Straight/Heterosexual Gender identity: Female Female Reproductive History Menstrual Age of Menarche: 16 Review of Systems Const All systems reviewed & are unremarkable except as noted in HPI and below Reports as per HPI and Reports no additional complaints GI Reports no additional complaints Reports no additional complaints Physical Exam Vital Signs: Last Vital Signs BP 110/72 07/05/23 10:41 BMI result Body Mass Index 31.9 Assessment & Plan Assessment & Plan (1) Positive hepatitis C antibody test: Code(s): R76.8 - Other specified abnormal immunological findings in serum Plan: Discussed with the patient positive hepatitis-B antibody test followed by undetectable level quantitative HCV viral load test, will check hep C virus DNA if negative and treat accordingly. All questions answered, the patient verbalized understanding Coding Level of Care Code Est Pt Level 3 (78692) Diagnoses Positive hepatitis C antibody test R76.8
== END 2023-07-05 15:06 | disposition home or self-care (01) ==
LOC: HO.HWS 10:29
PROVIDERS: PCP Internal Medicine; Visit Provider Obstetrics & Gynecology
DX: R76.8 Other specified abnormal immunological findings in serum (principal)
CPT/HCPCS: 99213

== ENCOUNTER → 2023-07-05 10:29 | Outpatient (BNVA) | payer OTHER, SELFPAY | PROVIDERS: PCP Internal Medicine; Visit Provider Obstetrics & Gynecology | DX: R76.8 Other specified abnormal immunological findings in serum (principal) | CPT/HCPCS: 99212 ==

== ENCOUNTER 2024-06-28 08:32 | Outpatient (AMB) | payer OTHER, SELFPAY ==
--- NOTE | 2024-06-28 08:36 | MHC.OFFVIS ---
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 No complaints. 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 Sexual orientation: Straight/Heterosexual Gender identity: Female Female Reproductive History Menstrual Age of Menarche: 16 Date of last menstrual period: 06/04/24 control method: permanent sterilization Total pregnancies: 2 Full term: 2 Number of Living Children: 2 Date of last pap smear: 06/11/22 Review of Systems Const All systems reviewed & are unremarkable except as noted in HPI and below Card Reports as per HPI Resp Reports as per HPI GI Reports as per HPI and Reports no additional complaints Reports as per HPI Physical Exam Vital Signs: Last Vital Signs BP 122/76 06/28/24 08:37 BMI result Body Mass Index 30.3 Const General: cooperative, healthy appearing and comfortable Chest Chest palpation & inspection: normal inspection of the chest and normal palpation of entire chest wall Breast/axilla inspection: normal inspection of the breasts and normal inspection of the axillae Breast/axilla palpation: normal palpation of the breasts, normal palpation of the axillae and no axillary lymphadenopathy Resp Effort & Inspection: normal respiratory effort Auscultation: clear to auscultation bilaterally Percussion: percussion normal Cardio Palpation: normal PMI Rate: regular rate Rhythm: regular rhythm Heart sounds: no murmurs and no rubs Peripheral pulses: Peripheral pulses 2+ throughout GI Inspection: Yes normal to inspection Palpation (GI): Soft to palpation, nontender, no guarding, not rigid and No hepatosplenomegaly present Percussion: Yes normal to percussion Auscultation: normal bowel sounds Rectal Exam - Female: deferred General: Yes bladder normal to palpation External Female Exam: No lesion Speculum Exam - Vagina: normal appearance of the vagina, normal palpation, normal vaginal discharge and not erythematous Speculum Exam - Cervix: normal appearance of the cervix and normal palpation Bimanual exam- vagina & uterus: normal bimanual exam, normal palpation, uterine size normal, bladder normal to palpation, consistency normal and normal palpation Bimanual Exam- Adnexa, other: normal adnexae, no masses and no tenderness Assessment & Plan Assessment & Plan (1) Well woman exam with routine gynecological exam: Code(s): Z01.419 - Encounter for gynecological examination (general) (routine) without abnormal findings Category: Medical Plan: Cotesting not indicated this year. Counseled the patient about the recommended dietary allowance of 1000 mg of Calcium & 600 IU of vitamin D. The patient was instructed to perform monthly self-breast exams and to schedule an annual exam in a year; All questions answered and the patient verbalized understanding. Instructed the patient to schedule annual exam in a year Coding Level of Care Code Est Pt Prev Care 18-39y(57435) Diagnoses Well woman exam with routine gynecological exam Z01.419
[2024-06-28 08:37] VITALS: BP 122/76; BMI 30.3
== END 2024-06-28 09:15 | disposition home or self-care (01) ==
PROVIDERS: PCP Internal Medicine; Visit Provider Obstetrics & Gynecology
DX: Z01.419 Encounter for gynecological examination (general) (routine) without abnormal findings (principal)
CPT/HCPCS: 99395; 99459

== ENCOUNTER → 2024-06-28 08:32 | Outpatient (BNVA) | payer OTHER, SELFPAY | PROVIDERS: PCP Internal Medicine; Visit Provider Obstetrics & Gynecology | DX: Z01.419 Encounter for gynecological examination (general) (routine) without abnormal findings (principal) | CPT/HCPCS: 99395; 99459 ==

== ENCOUNTER 2025-02-21 13:32 | Outpatient (AMB) | payer OTHER, SELFPAY ==
--- NOTE | 2025-02-21 13:37 | MHC.PC.OV ---
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 Transferring care from [place]. Medical records have not been requested and have not received. Float Remover Required: Yes Float Remover Language: Drapery Cutter Machine Name: Prachi (daughter) Information Interpreted: non-clinical & clinical (pt decline evaporator repairer service prefer daughter to translate) Potable Water Treatment Operator: Present Accompanied by: Daughter Allergies No Known Allergies Allergy (Verified 02/21/25 13:55) Medication List - Last Reconciled 02/21/25 by Madisyn Velasquez MD No Known Home Meds Tobacco use date assessed: 02/21/25 Dental Screening Dental Screen Date: 02/21/25 Did you have a dental visit in the last 12 months?: Yes Did you have a dental problem in the last 6 months where you did not have access to dental care?: No Was dental information given to patient?: Patient has dentist HPI HPI Comments History of Present Illness Details The patient is a 40-year-old female presenting complaining of bilateral angle tenderness that started few weeks ago. She is obese with a BMI of 33.6 and was advised to do diet and exercise. The patient reports experiencing low back pain, which she describes as a dull ache located in the lower back region, suspecting it might be related to her kidneys. The pain has been persistent for some time, and she notes that it worsens when lying on her stomach or side, causing significant discomfort. She has a history of vitamin D deficiency, which has been associated with symptoms such as hair loss and fatigue. The patient also reports a recent weight gain, leading to a BMI classification of class 1 obesity. Family history is significant for anxiety, asthma, depression, diabetes, and hypercholesterolemia, with her mother and father both having these conditions. The patient does not take any medications currently and has no history of smoking or regular alcohol consumption, although she occasionally drinks beer socially. Preventative care measures discussed include scheduling a mammography, as she recently turned 40, and ensuring her vaccinations are up to date. PFSH Medical History (Updated 02/21/25 @ 14:11 by Madisyn Velasquez MD) Idiopathic hypotension Orthostatic hypotension LAKIA I (cervical intraepithelial neoplasia I) GERD (gastroesophageal reflux disease) Hypovitaminosis D Dizziness Surgical History Hx of tubal ligation Family History (Updated 02/21/25 @ 14:03 by Madisyn Velasquez MD) Mother Depression Diabetes mellitus HTN (hypertension) Asthma Anxiety FH: mental illness Father Pure hypercholesterolemia HTN (hypertension) Other Mental health disorder Social History (Updated 02/21/25 @ 14:03 by Madisyn Velasquez MD) Household Members: Family Housing: Apartment Alcohol intake: current Alcohol intake frequency: a few times a month Alcohol type: beer Patient Tobacco Use Status: Never used Tobacco e-Cigarette/Vaping Use: Never Used Second Hand Smoke Exposure: No service: No Current occupational status: employed 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 1. Little interest or pleasure in doing things: not at all 2. Feeling down, depressed, or hopeless: not at all 3. Trouble falling or staying asleep, or sleeping too much: several days 4. Feeling tired or having little energy: several days 5. Poor appetite or overeating: not at all 6. Feeling bad about yourself - or that you are a failure or have let yourself or your family down: several days 7. Trouble concentrating on things, such as reading the newspaper or watching television: not at all 8. Moving or speaking so slowly that other people could have noticed. Or the opposite - being so fidgety or restless that you have been moving around a lot more than usual: not at all 9. Thoughts that you would be better off or of hurting yourself in some way: not at all Total score: 3 Depression Screening Interpretation: Positive Depression Screening Follow-up: Existing condition and Follow-up Visit Requested Depression Screening Done: Yes 77128 - PHQ-9 Billing: Yes Source: Developed by Drs. Asael Saavedra, Jesica Sanchez, Walker Larkin and colleagues, with an educational altagracia from [employer]. Thrive Questionnaire Date Thrive assessed: 02/15/25 I am a: Patient What is your living situation today?: I have a steady place to live Within the past 12 months, did the food you bought not last and you didn't have the money to get more?: Never true Within the past 12 months, did you worry whether your food would run out before you got money to buy more?: Sometimes True Do you have trouble paying for medicines?: No Do you have trouble getting transportation to medical appointments?: No Do you have trouble paying your heating and electricity bill?: No Do you have trouble taking care of your child, family member or friend?: No Do you have trouble with day-to-day activities such as bathing, preparing meals, shopping, managing finances, etc.?: No Are you currently unemployed and looking for a job?: No Are you interested in more education?: I choose not to answer this question Please select the resources that you would like help with: None Currently or been in a relationship where the following occur: No concerns reported THRIVE Score: 1 AUDIT C Alcohol Use Questionnaire (AUDIT-C) 1. How often do you have a drink containing alcohol?: 2-4 times a month 2. How many drinks containing alcohol do you have on a typical day when you are drinking?: 1 or 2 3. How often do you have six or more drinks on one occasion?: Never Total Score: 2 Score Reviewed/Action Taken: No DEBORA-7 AMB Questionnaire DEBORA-7 Date DEBORA - 7 assessed: 02/21/25 Feeling nervous, anxious, or on edge: 0 = Not at all Not being able to stop or control worryin = Several days Worrying too much about different things: 2 = More than half the days Trouble relaxin = Not at all Being so restless that it is hard to sit still: 0 = Not at all Becoming easily annoyed or irritable: 2 = More than half the days Feeling afraid as if something awful might happen: 0 = Not at all Total DEBORA-7 score (0-4 normal; 5-9 mild; 10-14 moderate; 15-21 severe): 5 Source: Developed by Drs. Asael Saavedra, Jesica Sanchez, Walker Larkin and colleagues, with an educational altagracia from [employer]. DEBORA-7 Assessment Billing DEBORA-7 Assessment Tool: DEBORA-7 Assessment 23201 Review of Systems Const All systems reviewed & are unremarkable except as noted in HPI and below Card Denies chest pain at rest, Denies chest pain with activity, Denies edema, Denies irregular heart rhythm, Denies claudication, Denies dyspnea, Denies dyspnea on exertion, Denies orthopnea, Denies paroxysmal nocturnal dyspnea and Denies slow heart rate Resp Denies cough, Denies dyspnea and Denies dyspnea on exertion Physical exam (Primary Care) Vital Signs: Last Vital Signs Temp 97.3 F 02/21/25 13:39 Pulse 73 02/21/25 13:39 BP 130/70 02/21/25 13:39 Pulse Ox 97 02/21/25 13:39 Oxygen Delivery Method Room Air 02/21/25 13:39 BMI result Body Mass Index 33.5 BMI Assessment/Plan discussion: High BMI High, discussed plan: lifestyle, weight reduction, dietary and physical activity Tobacco/Smoking Status: Tobacco use Status Tobacco use date assessed 02/21/25 02/21/25 13:48 Patient Tobacco Use Status Never used Tobacco 02/21/25 13:48 e-Cigarette/Vaping Use Never Used 02/21/25 13:48 PHQ-9: PHQ-9 Score PHQ-9: Total score 3 02/21/25 13:48 Depression Screening Interpretation: Positive Depression Screening Follow-up: Existing condition and Follow-up Visit Requested Thrive Assessment: Date of Thrive Assessment Date Thrive assessed 02/15/25 02/21/25 13:48 Currently or been in a relationship where the following occur: No concerns reported Resp Effort & Inspection: normal respiratory effort Auscultation: clear to auscultation bilaterally Cardio Jugular venous distension: no JVD Rate: regular rate Rhythm: regular rhythm Heart sounds: S1 normal heart sound present and S2 normal heart sound present Extrem General: Yes full ROM Coding Level of Care Code New Pt Level 4 (23549) Diagnoses Class 1 obesity with body mass index (BMI) of 33.0 to 33.9 in adult E66.811; Z68.33 Hypovitaminosis D E55.9 Pure hypercholesterolemia E78.00 Minimal recurrent major depressive disorder F33.9 Costovertebral (angle) tenderness, bilateral R39.853 Additional Codes PHQ-9 - 83497 - PHQ-9 Billing: Yes ([id number]) DEBORA-7 Assessment Billing - DEBORA-7 Assessment Tool: DEBORA-7 Assessment 50421 ([id number]) Time Spent (min) 23 Assessment & Plan Assessment & Plan (1) Class 1 obesity with body mass index (BMI) of 33.0 to 33.9 in adult: Code(s): E66.811 - Obesity, class 1; Z68.33 - Body mass index [BMI] 33.0-33.9, adult Category: Medical (2) Hypovitaminosis D: Code(s): E55.9 - Vitamin D deficiency, unspecified Category: Medical (3) Pure hypercholesterolemia: Code(s): E78.00 - Pure hypercholesterolemia, unspecified Category: Medical (4) Minimal recurrent major depressive disorder: Code(s): F33.9 - Major depressive disorder, recurrent, unspecified Category: Medical (5) Costovertebral (angle) tenderness, bilateral: Code(s): R39.853 - Costovertebral (angle) tenderness, bilateral Category: Medical Plan Plan Patient was informed and verbally consented to the use of an ambient scribe for clinic note documentation during this visit. 1. Obesity The patient has been classified with class 1 obesity, with a BMI of 33, noted after a recent weight gain. Lifestyle modifications, including dietary changes and increased physical activity, were discussed to address this issue. 2. Vitamin D Deficiency The patient has a history of vitamin D deficiency, which has been associated with symptoms such as hair loss and fatigue. A plan to monitor vitamin D levels and consider supplementation was discussed. 3. Low Back Pain The patient reports persistent low back pain, described as a dull ache, with suspicion of renal involvement. Imaging studies were planned to assess for potential nephrolithiasis. 4. Preventative Care: Mammography As part of preventative care, a mammography was recommended since the patient recently turned 40. The importance of regular screenings and vaccinations was emphasized. Orders: Orders Comprehensive [place]. Panel Fast Today E66.811 - Obesity, class 1, Z68.33 - Body mass index [BMI] 33.0-33.9, adult Complete Blood Count Auto Diff Today E66.811 - Obesity, class 1, Z68.33 - Body mass index [BMI] 33.0-33.9, adult MM tomosynthesis screening BI Today Z12.31 - Encounter for screening mammogram for malignant neoplasm of breast Vitamin D 25-OH Total Today E55.9 - Vitamin D deficiency, unspecified Lipid Panel Today E78.5 - Hyperlipidemia, unspecified Thyroid Stimulating Hormone Today E66.811 - Obesity, class 1, Z68.33 - Body mass index [BMI] 33.0-33.9, adult
[2025-02-21 13:39] VITALS: BP 130/70; PULSE 73; TEMP 36.3; O2SAT 97; BMI 33.5
== END 2025-02-21 14:12 | disposition home or self-care (01) ==
PROVIDERS: PCP Internal Medicine; Visit Provider Internal Medicine
DX: E66.811 Obesity, class 1 (principal); Z68.33 Body mass index [BMI] 33.0-33.9, adult; E55.9 Vitamin D deficiency, unspecified; E78.00 Pure hypercholesterolemia, unspecified; F33.9 Major depressive disorder, recurrent, unspecified; R39.853 Costovertebral (angle) tenderness, bilateral

== ENCOUNTER → 2025-02-21 13:32 | Outpatient (BNVA) | payer OTHER, SELFPAY | PROVIDERS: PCP Internal Medicine; Visit Provider Internal Medicine | DX: M25.572 Pain in left ankle and joints of left foot (principal); M25.571 Pain in right ankle and joints of right foot; M54.50 Low back pain, unspecified; E55.9 Vitamin D deficiency, unspecified; E78.00 Pure hypercholesterolemia, unspecified; F33.9 Major depressive disorder, recurrent, unspecified; R39.853 Costovertebral (angle) tenderness, bilateral; E66.811 Obesity, class 1; Z68.33 Body mass index [BMI] 33.0-33.9, adult | CPT/HCPCS: 96127; 99202 ==

== ENCOUNTER 2025-03-26 10:24 | Outpatient (REF) | payer OTHER, SELFPAY | END 2025-03-26 10:25 | disposition home or self-care (01) | LOC: HO.MAMMO 10:24 | PROVIDERS: PCP Internal Medicine; Visit Provider Internal Medicine | DX: Z13.89 Encounter for screening for other disorder (principal) ==